=== PATIENT | male | born 1975 | race Caucasian/White ===

== ENCOUNTER 2017-06-19 13:37 | Emergency (ER) | payer SELFPAY ==
[~2017-06-19] VITALS: Ht 167.6 cm; Wt 70.0 kg
[2017-06-19] MEDS ORDERED: SODIUM CHLORIDE 0.9% 500 ML IV ONE (14:52)
[2017-06-19] MEDS ORDERED: PROCHLORPERAZINE 10MG/2ML VIAL IV ONE (15:00)
[2017-06-19] MEDS ORDERED: DIPHENHYDRAMINE 50MG/ML VIAL IV ONE (15:00)
[2017-06-19 15:20] LABS: BASOPHILS % 2.3 % (0.0-2.0); EOSINOPHILS % 6.3 % (0.0-5.0); HEMATOCRIT. 32.9 % (42.0-52.0); HEMOGLOBIN. 11.6 g/dL (14.0-18.0); LYMPHOCYTES % 18.6 % (20.0-50.0); MEAN CORPUSCULAR HEMOGLOBIN 31.4 pg (28.0-32.0); MONOCYTES % 8.3 % (2.0-8.0); NEUTROPHILS % 64.5 % (40.0-76.0); PLATELET 292 x1000/uL (130-400); RED CELL DISTRIBUTION WIDTH 13.8 % (11.6-14.6)
[2017-06-19 15:23] LABS: CHLORIDE 99 mEq/L (98-107)
[2017-06-19 15:25] LABS: PROTHROMBIN TIME 10.9 sec (9.4-11.6)
[2017-06-19 16:49] VITALS: BP 108/75
== END 2017-06-19 17:00 | disposition home or self-care (01) ==
LOC: ER 13:37
DX: D64.9 Anemia, unspecified (principal); N18.6 End stage renal disease; R73.9 Hyperglycemia, unspecified; R03.0 Elevated blood-pressure reading, without diagnosis of hypertension; R74.8 Abnormal levels of other serum enzymes; E88.09 Other disorders of plasma-protein metabolism, not elsewhere classified; R10.84 Generalized abdominal pain; Z99.2 Dependence on renal dialysis
CPT/HCPCS: 36415; 80053; 83690; 85025; 85610; 93005; 96374; 96375; 99285; J0780; J1200; J7030; Z7610

== ENCOUNTER 2021-08-20 09:03 | Inpatient (IN) | payer MEDICAID ==
[~2021-08-20] VITALS: Ht 160 cm; Wt 66.2 kg
[2021-08-20] MEDS ORDERED: MORPHINE SULFATE 4 MG/ML CPJ (NOT FOR IM USE) IV STA (09:11)
[2021-08-20] MEDS ORDERED: ONDANSETRON HCL 4MG/2ML INJ IV STA (09:11)
[2021-08-20 09:43] LABS: BASOPHILS % 0.5 % (0.0-2.0); EOSINOPHILS % 8.4 % (0.0-5.0); LYMPHOCYTES % 15.9 % (20.0-50.0); MEAN CORPUSCULAR HEMOGLOBIN 31.3 pg (28.0-32.0); MEAN CORPUSCULAR VOLUME 93.7 fL (80.0-94.0); MEAN PLATELET VOLUME 7.8 fl (7.4-10.4); MONOCYTES % 8.8 % (2.0-8.0); NEUTROPHILS % 66.4 % (40.0-76.0); PLATELET 178 x1000/uL (130-400); RED BLOOD CELL COUNT 4.16 mill/uL (4.7-6.1); RED CELL DISTRIBUTION WIDTH 15.1 % (11.6-14.6)
[2021-08-20 09:50] LABS: CHLORIDE 101 mEq/L (98-107)
[2021-08-20 12:00] VITALS: BP 159/98
[2021-08-20 12:44] VITALS: BP 159/98
[2021-08-20] MEDS ORDERED: ONDANSETRON HCL 4MG/2ML INJ IV PRN (13:15)
[2021-08-20] MEDS ORDERED: HYDROCODONE/ACETAMINOPHEN 5/325MG TABLET PO PRN (13:15)
[2021-08-20] MEDS ORDERED: NIFEDIPINE XL 60MG TAB PO SCH (13:15)
[2021-08-20] MEDS ORDERED: NIFE-32 PO (13:25)
[2021-08-20] MEDS ORDERED: GABA-529 PO (13:25)
[2021-08-20] MEDS ORDERED: METO25TA6 PO (13:25)
[2021-08-20] MEDS ORDERED: CALC667C PO (13:25)
[2021-08-20] MEDS ORDERED: ASPI-1497 PO (13:25)
[2021-08-20] MEDS ORDERED: CARV25TA47 PO (13:25)
[2021-08-20] MEDS ORDERED: SEVE800T8 MT (13:25)
[2021-08-20] MEDS ORDERED: NALOXONE HCL 0.4MG/ML VIAL IV PRN (13:30)
[2021-08-20 16:00] VITALS: BP 166/96
[2021-08-20] MEDS: CALCIUM ACETATE 667MG CAPSULE PO SCH (17:29)
[2021-08-20] MEDS: CLONIDINE 0.1MG TABLET PO PRN (17:30)
[2021-08-20 18:20] LABS: HEPATITIS B SURFACE ANTIGEN NEGATIVE
[2021-08-20 20:00] VITALS: BP 182/110
[2021-08-20] MEDS: CARVEDILOL 12.5MG TABLET PO SCH (21:29)
[2021-08-20] MEDS: ATORVASTATIN CALCIUM 20MG TABLET PO SCH (21:30)
[2021-08-21] VITALS (8 sets, daily range): BP systolic 125–196; BP diastolic 77–111
[2021-08-21] MEDS: CLONIDINE 0.1MG TABLET PO PRN ×3 (00:57→15:55)
[2021-08-21] MEDS: CALCIUM ACETATE 667MG CAPSULE PO SCH ×3 (08:04→17:06)
[2021-08-21] MEDS: CARVEDILOL 12.5MG TABLET PO SCH ×2 (08:05→22:28)
[2021-08-21] MEDS ORDERED: ASPIRIN 81MG TABLET PO SCH (09:00)
[2021-08-21] MEDS ORDERED: NIFEDIPINE XL 90MG TAB PO SCH (09:00)
[2021-08-21] MEDS: ATORVASTATIN CALCIUM 20MG TABLET PO SCH (22:28)
== END 2021-08-21 23:00 | disposition home or self-care (01) | DRG 249 ==
LOC: ER 09:03 → EDBEDREQ 11:55 → EDBEDREQTM 11:55 → EDBEDREQ 11:58 → ENRESERV 12:03 → 7WST 13:11
PROVIDERS: ADMIT Internal Medicine; ATTEND Internal Medicine
PROC: 5A1D70Z Performance of Urinary Filtration, Intermittent, Less than 6 Hours Per Day (ICD-10-PCS; principal; 2021-08-20)
DX: K52.9 Noninfective gastroenteritis and colitis, unspecified (principal); I13.2 Hypertensive heart and chronic kidney disease with heart failure and with stage 5 chronic kidney disease, or end stage renal disease; N18.6 End stage renal disease; Z99.2 Dependence on renal dialysis; E78.5 Hyperlipidemia, unspecified; I25.10 Atherosclerotic heart disease of native coronary artery without angina pectoris; E78.00 Pure hypercholesterolemia, unspecified; Z90.49 Acquired absence of other specified parts of digestive tract; Z79.82 Long term (current) use of aspirin; Z79.899 Other long term (current) drug therapy; I50.30 Unspecified diastolic (congestive) heart failure
CPT/HCPCS: 36415; 71045; 74176; 80053; 82553; 84484; 85025; 86705; 86709; 86803; 87340; 93005; 93306; 99285; J2270; J2405